=== PATIENT | female | born 1945 | race Caucasian/White ===

== ENCOUNTER → 2017-03-09 | Outpatient (CLI) | payer OTHER ==
[~2017-03-09] MED LIST: ACCUPRIL40 MG PO; BYSTOLIC 5 MG5 M1 PO; CLARITIN10 MG PO; EVISTA PO; HYDROCODONE-AP1 EAC6 PO; LEVOTHYROXIN0.137 M1 PO; SENNA S TABLET1 EACH PO; SENOKOT-S1 TA1 PO; VITAMIN D2000 UNIT PO; ZOCOR20 MG PO
== END ==
LOC: RAD 01:49
DX: Z12.31 Encounter for screening mammogram for malignant neoplasm of breast (principal)

== ENCOUNTER → 2018-06-03 | Outpatient (CLI) | payer OTHER | LOC: RAD 07:40 | DX: Z12.31 Encounter for screening mammogram for malignant neoplasm of breast (principal) ==

== ENCOUNTER → 2019-05-02 | Outpatient (CLI) | payer OTHER | LOC: BC 11:52 | DX: Z12.31 Encounter for screening mammogram for malignant neoplasm of breast (principal) ==

== ENCOUNTER → 2020-08-13 | Outpatient (CLI) | payer OTHER | LOC: RAD 08:45 | PROVIDERS: ATTEND Internal Medicine Hematology & Oncology | DX: Z12.31 Encounter for screening mammogram for malignant neoplasm of breast (principal); N64.89 Other specified disorders of breast ==

== ENCOUNTER → 2021-08-20 | Outpatient (CLI) | payer OTHER | LOC: BC 08:50 | PROVIDERS: ATTEND Internal Medicine Hematology & Oncology | DX: Z12.31 Encounter for screening mammogram for malignant neoplasm of breast (principal) ==